=== PATIENT | male | born 1940 | race Caucasian/White ===

== ENCOUNTER 2017-09-17 15:46 | Emergency (ER) | payer OTHER ==
[2017-09-17 16:02] VITALS: BP 133/96; PULSE 77; RESP 18; TEMP 98.1; O2SAT 94
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
== END 2017-09-17 16:20 | disposition home or self-care (01) ==
DX: Z04.1 Encounter for examination and observation following transport accident (principal); V49.49XA Driver injured in collision with other motor vehicles in traffic accident, initial encounter; Y92.410 Unspecified street and highway as the place of occurrence of the external cause; Y99.8 Other external cause status; Y93.89 Activity, other specified